=== PATIENT | male | born 1985 | race Caucasian/White ===

== ENCOUNTER 2023-06-17 16:35 | Emergency (ER) | payer OTHER ==
[~2023-06-17] VITALS: Ht 165.1 cm; Wt 75.9 kg
[2023-06-17 16:43] VITALS: BP 112/68; PULSE 104; RESP 20; TEMP 97.8; O2SAT 99
[2023-06-17] MEDS ORDERED: ACET-1182 PO (17:05)
[2023-06-17 17:22] VITALS: BP 122/76; PULSE 72; RESP 16; TEMP 98; O2SAT 99
== END 2023-06-17 17:27 | disposition home or self-care (01) ==
LOC: MED 16:35
DX: S01.01XA Laceration without foreign body of scalp, initial encounter (principal); Z79.899 Other long term (current) drug therapy; W22.8XXA Striking against or struck by other objects, initial encounter; Y92.89 Other specified places as the place of occurrence of the external cause; Y93.89 Activity, other specified; Y99.8 Other external cause status
CPT/HCPCS: 90471; 90715; 99283

== ENCOUNTER 2023-06-19 09:51 | Emergency (ER) | payer OTHER ==
[~2023-06-19] VITALS: Ht 177.8 cm; Wt 85.7 kg
[~2023-06-19 09:51] MED LIST: ACET-1182 PO
[2023-06-19 10:00] VITALS: BP 139/84; PULSE 89; RESP 16; TEMP 98.1; O2SAT 99
[2023-06-19 10:53] VITALS: BP 125/78; PULSE 78; RESP 16; TEMP 98.1; O2SAT 99
== END 2023-06-19 10:53 | disposition home or self-care (01) ==
LOC: MED 09:51
DX: S01.01XD Laceration without foreign body of scalp, subsequent encounter (principal); Z48.00 Encounter for change or removal of nonsurgical wound dressing; Z79.899 Other long term (current) drug therapy; X58.XXXD Exposure to other specified factors, subsequent encounter
CPT/HCPCS: 99281

== ENCOUNTER 2023-06-24 11:53 | Emergency (ER) | payer OTHER ==
[~2023-06-24] VITALS: Ht 165.1 cm; Wt 75.5 kg
[2023-06-24 12:29] VITALS: BP 129/67; PULSE 107; RESP 18; TEMP 98.2; O2SAT 98
[2023-06-24 12:52] VITALS: BP 129/67; PULSE 107; RESP 18; TEMP 98.2; O2SAT 98
== END 2023-06-24 12:52 | disposition home or self-care (01) ==
LOC: MED 11:53
DX: S01.112D Laceration without foreign body of left eyelid and periocular area, subsequent encounter (principal); Z48.02 Encounter for removal of sutures; Z79.899 Other long term (current) drug therapy; X58.XXXD Exposure to other specified factors, subsequent encounter
CPT/HCPCS: 99281